=== PATIENT | female | born 1990 ===

== ENCOUNTER 2021-02-09 05:32 | Outpatient (RCR) | payer OTHER ==
[~2021-02-09] VITALS: Ht 149.9 cm; Wt 60.9 kg
== END 2021-02-09 10:15 | disposition home or self-care (01) ==
LOC: PREOP 05:32
PROVIDERS: ATTEND Surgery
DX: Z01.812 Encounter for preprocedural laboratory examination (principal); K21.9 Gastro-esophageal reflux disease without esophagitis; Z20.822 Contact with and (suspected) exposure to COVID-19
CPT/HCPCS: 87635

== ENCOUNTER → 2021-02-09 | Outpatient (CLI) | payer OTHER ==
[~2021-02-09] MED LIST: ACHD5005 PO; DOCU100C37 PO; FERR325T18 PO; IBUP-1773 PO; MULT-1136 PO; PANT40TA52 PO; PREN-148 PO; SUCR1TAB PO
== END ==
LOC: LABNPT 07:06
PROVIDERS: ATTEND Nurse Practitioner Family
DX: Z20.822 Contact with and (suspected) exposure to COVID-19 (principal)

== ENCOUNTER 2021-02-11 10:36 | Day surgery (SDC) | payer OTHER ==
[~2021-02-11] VITALS: Ht 149.9 cm; Wt 60.9 kg
[2021-02-11] VITALS (13 sets, daily range): BP systolic 102–132; BP diastolic 56–91
[2021-02-11] MEDS ORDERED: NS IV 500 ML 500 ML ONE (10:37)
[2021-02-11] MEDS ORDERED: fentaNYL INJ 100 MCG/2 ML AMP IVP ONE (11:00)
[2021-02-11] MEDS ORDERED: NS IV 500 ML 500 ML IV PRN (11:00)
[2021-02-11] MEDS ORDERED: HURRICAINE EXT TUBE (BENZOCAINE) XX PRN (11:00)
[2021-02-11] MEDS ORDERED: MIDAZOLAM 5 MG/5 ML (VERSED) VIAL IV ONE (11:00)
[2021-02-11] MEDS ORDERED: LIDOCAINE JELLY 2% 6 ML SYRINGE MM PRN (11:00)
--- NOTE | 2021-02-11 12:00 | Conscious Sedation/ASA ---
Conscious Sedation Pre-Proced Time 11:30 ASA Score 2 For ASA 3 and 4: Consider anesthesia and medical clearance. Also, for patients with a history of failed moderate sedation consider anesthesia. Airway Lungs Heart ASA score ASA 1: a normal healthy patient ASA 2: a patient with a mild systemic disease (mid diabetes, controlled hypertension, obesity ASA 3: a patient with a severe systemic disease that limits activity (angina, COPD, prior Myocardial infarction) ASA 4: a patient with an incapacitating disease that is a constant threat to life (CHF, renal failure) ASA 5: a moribund patient not expected to survive 24 hrs. (ruptured aneurysm) ASA 6: a declared brain- patient whose organs are being harvested. For emergent operations, add the letter E after the classification Mallampati Classification Grade 2 Sedation Plan Analgesia, Amnesia, Plan communicated to team members, Discussed options with patient/fam, Discussed risks with patient/fam The patient is an appropriate candidate to undergo the planned procedure, sedation, and anesthesia. The patient immediately re-assessed prior to indication. OTF DASILVA MD Feb 11, 2021 12:00
--- NOTE | 2021-02-11 12:01 | Progress Note-Pre Operative ---
Pre-Operative Progress Note H&P Reviewed The H&P was reviewed, patient examined and no changes noted. Date Seen by Provider: Feb 11, 2021 Time Seen by Provider: 11:30 Date H&P Reviewed: Feb 11, 2021 Time H&P Reviewed: 11:30 Pre-Operative Diagnosis: GERD, dysphagia OTF DASILVA MD Feb 11, 2021 12:01
--- NOTE | 2021-02-11 12:02 | Discharge Inst-Surgical ---
D/C Lap Instructions-BROWN Follow Up Activity as tolerated High Fiber Diet 25g or more per day Avoid Alcohol, Caffeine, Spicy [place] and Acid foods. Drink 64 fluid oz or more of fluids per day. Symptoms to Report: Fever over 101 degree F, Nausea/Vomiting If any problems/questions: Contact your physician or go to Emergency Room OTF DASILVA MD Feb 11, 2021 12:02
[2021-02-11] MEDS ORDERED: morphine INJ 10 MG/ML 1ML (SYR OR VIAL) IVP PRN ×2 (12:15)
[2021-02-11] MEDS ORDERED: ACETAMINOPHEN 325 MG TABLET PO PRN (12:15)
[2021-02-11] MEDS ORDERED: HYDROcodone/APAP 5 MG/325 MG (LORTAB) TAB PO PRN (12:15)
[2021-02-11] MEDS ORDERED: ONDANSETRON 4 MG/2 ML (SDV) Z0FRAN IVP PRN (12:15)
[2021-02-11] MEDS ORDERED: LIDOCAINE JELLY 2% 6 ML SYRINGE ONE (12:26)
[2021-02-11] MEDS ORDERED: MIDAZOLAM 5 MG/5 ML (VERSED) VIAL ONE ×2 (12:26)
[2021-02-11] MEDS ORDERED: fentaNYL INJ 100 MCG/2 ML AMP ONE (12:27)
[2021-02-11] MEDS ORDERED: HURRICAINE EXT TUBE (BENZOCAINE) ONE (12:27)
--- NOTE | 2021-02-11 13:17 | Progress Note-Post Operative ---
Post-Operative Progess Note Surgeon (s)/Fuels Sales Representative (s) Surgeon OTF DASILVA MD Fuels Sales Representative: none Pre-Operative Diagnosis GERD, dysphagia Post-Operative Diagnosis reflux esophagitis(stage 2), mild distal esophageal stricture vs. achalasia, mild-mod gastritis. Procedure & Operative Findings Date of Procedure 02/11/21 Procedure Performed/Findings EGD with bx and balloon dilatation. Anesthesia Type cs Estimated Blood Loss Estimated blood loss (mL): minimal Specimens/Packing Specimens Removed GE jxn, antrum OTF DASILVA MD Feb 11, 2021 13:17
--- NOTE | 2021-02-11 21:12 | OPERATIVE REPORT ---
DATE OF SERVICE: 02/11/2021 ATTENDING PRIMARY CARE PHYSICIAN: Ladan Nascimento MD PREOPERATIVE DIAGNOSES: Gastroesophageal reflux disease, dysphagia. POSTOPERATIVE DIAGNOSES: Reflux esophagitis stage II, mild distal esophageal stricture versus achalasia. No hiatal hernia. Mild gastritis. No distal obstructions. PROCEDURE: EGD with biopsy and balloon dilatation. SURGEON: Otf Dasilva MD ANESTHESIA: Conscious sedation. ESTIMATED BLOOD LOSS: Minimal. FINDINGS: Same as postop diagnosis. DISPOSITION: The patient tolerated the procedure well. INDICATIONS: The patient is a 30-year-old female referred over to us for epigastric burning sensation as well as a pressure sensation and dysphagia. She states that she also does have some intermittent episodes of nausea; however, no vomiting. She states caffeinated beverages as well as spicy foods and peppermint make her reflux worse. She was started on Protonix and Carafate; however, does not report any improvement with her symptoms. DESCRIPTION OF PROCEDURE: The patient was brought to the endoscopy suite, laid in the left lateral decubitus position with head slightly elevated. After adequate IV pain and sedative medications and conscious sedation anesthesia, the mouthpiece was applied. The endoscope was then placed in the mouth, visualizing the pharynx and hypopharyngeal region. Vocal cords, epiglottis and vallecula identified and appeared to be normal. The endoscope was then gently intubated into the esophageal opening and esophagus insufflated. The endoscope was then advanced to the first, second and third portion of esophagus at the level of the GE junction, a reflux esophagitis stage II identified. There was a mild distal esophageal stricture versus an achalasia due to a hypertonic lower esophageal sphincter. A biopsy was taken of the GE junction with forceps with visualization of good hemostasis. The endoscope was then advanced in the stomach and endoscope retroflexed visualizing no hiatal hernia. There was a mild to moderate gastritis. No formal ulcerations, polyps, or any neoplasms. A biopsy was taken of the antrum to rule out H. pylori with visualization of good hemostasis. The endoscope was then advanced through the pylorus and the first and second portions of duodenum with no distal obstructions. We then proceeded with dilatation of the esophageal stricture versus achalasia and the balloon was placed in the stomach and pulled back to the area of the stricture. The balloon was then insufflated to 2, 4, then 6 atmospheres of pressure with moderate resistance. This was roughly 20 mm in luminal diameter. The patient did show some discomfort, likely indicating a successful dilatation. This was left in place for 60 seconds. The balloon was then desufflated and removed with visualization of good hemostasis as well as no mucosal tears. Endoscope was then slowly withdrawn while taking a second look and suctioning of residual air with no additional findings. The patient tolerated the procedure well. We will have her proceed with the necessary lifestyle and diet accommodation including small and more frequent meals, avoidance of eating at night as well as head elevation while lying supine. We also want her to avoid caffeinated beverages, spicy, greasy and acidic foods. She is currently on Protonix daily, which we will have her continue as well. If she has recurrent dysphagia, she may have an esophageal dysmotility and we will then proceed with an esophageal manometry study and if she does have signs and symptoms consistent with achalasia, we will then proceed with graded dilatation with an achalasia balloon up to 3.5 cm in luminal diameter. Job ID: [id number] DocumentID: [id number] Dictated Date: 02/11/2021 13:12:50 Treasurer Date: 02/11/2021 21:11:09 Dictated By: OTF DASILVA MD
== END 2021-02-11 13:53 | disposition home or self-care (01) ==
LOC: ENDO 10:36
PROVIDERS: ATTEND Surgery
DX: K21.00 Gastro-esophageal reflux disease with esophagitis, without bleeding (principal); K29.50 Unspecified chronic gastritis without bleeding; K22.2 Esophageal obstruction; Z79.899 Other long term (current) drug therapy; Z83.3 Family history of diabetes mellitus; Z82.49 Family history of ischemic heart disease and other diseases of the circulatory system
CPT/HCPCS: 36415; 84703; 88305

== ENCOUNTER → 2021-07-22 | Outpatient (CLI) | payer OTHER ==
--- NOTE | 2021-07-22 10:29 | Diagnostic Imaging Report ---
INDICATION: Right upper quadrant abdominal pain. TECHNIQUE: Gallbladder sonography was performed in the routine fashion. FINDINGS: The liver shows normal echogenicity with no focal lesions. Gallbladder is unremarkable with no stones or wall thickening. Common duct measured 5 mm. The pancreas was not well seen due to overlying gas. Visualized portions of the aorta and IVC are normal. The right kidney measured 10.0 cm in length. There is no ascites. Sonographic Soria's sign was negative. Portal vein was patent. IMPRESSION: Unremarkable ultrasound of the gallbladder and right upper quadrant. Dictated by: Dictated on workstation # [id number]
== END ==
LOC: RAD 09:35
PROVIDERS: ATTEND Nurse Practitioner Family
DX: R10.11 Right upper quadrant pain (principal)
CPT/HCPCS: 76705